=== PATIENT | female | born 1990 | race Caucasian/White ===

== ENCOUNTER 2020-01-29 10:31 | Outpatient (REF) | payer MEDICAID, SELFPAY ==
--- NOTE | 2020-01-29 | US_ITS ---
EXAMINATION: ULTRASOUND PELVIS COMPLETE. CLINICAL INFORMATION: Heavy and irregular periods. COMPARISON: None TECHNIQUE: Transabdominal and transvaginal imaging of pelvis is performed. FINDINGS: The uterus is anteverted, retroflexed measuring 8.5 cm in length, 3.5 cm in AP and 5.3 cm in transverse dimension. Endometrial thickness is 0.6 cm. No focal uterine lesions seen. There are small nabothian cysts seen in the cervix. Right ovary measures 3.4 x 1.9 x 2.0 cm and volume 6.6 mL and appears unremarkable. The left ovary measures 2.7 x 1.5 x 1.6 cm and volume 3.3 mL and appears unremarkable. There is no free fluid in cul-de-sac. IMPRESSION: Unremarkable the uterus and ovaries. Small nabothian cysts in the cervix.
== END 2020-01-29 10:32 | disposition home or self-care (01) ==
LOC: HO.HMGCX 10:31
PROVIDERS: PCP Internal Medicine; Visit Provider Internal Medicine
DX: N92.1 Excessive and frequent menstruation with irregular cycle (principal)
CPT/HCPCS: 76830; 76856

== ENCOUNTER 2020-04-09 19:36 | Emergency (ER) | payer MEDICAID, SELFPAY ==
[2020-04-09 19:44] VITALS: BP 112/90; BP 97/64; PULSE 80; PULSE 81; RESP 20; TEMP 36.8; O2SAT 100; O2SAT 98; BMI 25.0
[2020-04-09 19:50] VITALS: RESP 20
--- NOTE | 2020-04-09 21:04 | XR_ITS ---
EXAMINATION: XR CHEST CLINICAL INFORMATION: Cough. COMPARISON: None TECHNIQUE: Frontal portable view of the chest was obtained. 9:22 PM FINDINGS: No significant abnormality is noted involving the heart, lungs, mediastinum, bony thorax or soft tissues. XR/XR chest 1V IMPRESSION: Unremarkable examination.
--- NOTE | 2020-04-09 21:07 | ED.URI ---
HPI - URI/Sore Throat General Chief Complaint: Upper Respiratory Symptoms Stated Complaint: WEAKNESS,+COVID T-1 Time Seen by Provider: 04/09/20 21:04 Source: patient Mode of arrival: ambulatory History of Present Illness HPI Narrative: This is a 29-year-old female without significant past medical history who states that she was identified as being COVID positive yesterday and states that she has continued to have headache, body aches, nausea but no vomiting, 2 episodes of diarrhea, dry cough, and urinary burning. Related Data Allergies Allergy/AdvReac Type Severity Reaction Status Date / Time amoxicillin [Amoxicillin] Allergy Severe SOB, Verified 04/09/20 19:43 rash/shortness of breath Review of Systems Review of Systems: Pertinent positives and negatives as stated in HPI 10 point review systems is otherwise negative. [facility], [place] Past Medical History Source: nursing notes reviewed Medical History Asthma delivery delivered Surgical History S/P appendectomy Tubal ligation status Social History Social History Alcohol intake: never Smoking Status: Never smoker Use of substances other than those prescribed or required for medical reasons: No Advance Directives: No Advance Directives Information Provided: No Physical Exam Vital Signs: Vital Signs: Last Vital Signs Temp 98.3 F 04/09/20 19:44 Pulse 81 04/09/20 19:44 Resp 20 04/09/20 19:50 BP 97/64 04/09/20 19:44 Pulse Ox 98 04/09/20 19:44 Body Mass Index 25.0 VITAL SIGNS: Reviewed. GENERAL: Well developed, well nourished, in no acute distress. HEAD: Normocephalic/atraumatic, EYES: PERRLA, EOMI intact without pain EARS: Ext canals without abnormality, TMs non-bulging and non-erythematous NOSE: Nares patent bilateral OROPHARYNX: no oral lesions noted, posterior pharynx clear and non-erythematous without noted tonsillar enlargement/erythema/exudates NECK: Supple, no adenopathy LUNGS: Normal breath sounds. No adventitious sounds or accessory muscle use. SpO2<98> CARDIOVASCULAR: Regular rate and rhythm without noted murmurs, no JVD or lower extremity edema. ABDOMEN: Soft, non-tender, non-distended with bowel sounds. No rigidity. No guarding. No palpable masses or hernias noted MUSCULOSKELETAL: No tenderness, deformities, or effusions noted on gross inspection. EXTREMITIES: No cyanosis, clubbing or edema. SKIN: Inspection of the skin reveals no rashes NEUROLOGIC: Alert and oriented x 4. Course Course Course Narrative: This is a 29-year-old female with history and clinical presentation consistent with viral syndrome secondary to COVID-19. Suspect patient is mildly dehydrated and will be given IV fluids, combination analgesics, and obtain an x-ray as well as UA. Otherwise, patient is not noted to be tachypneic, hypoxic. On re-evaluation patient states that she is feeling much better after having received the combination analgesics and IV fluids. She states that she is ready to go home. MDM - URI/Sore Throat Lab Data Labs: Lab Results 04/09/20 Range/Units 21:24 Urine Color YELLOW Urine Appearance CLEAR Urine pH 6.5 (5.0-8.0) Ur Specific [place] 1.020 (1.005-1.025) Urine Protein NEG (NEG-TRACE) MG/DL Urine Glucose (UA) NEG (NEG) MG/DL Urine Ketones NEG (NEG) MG/DL Urine Blood NEG (NEG) Urine Nitrite NEG (NEG) Ur Leukocyte Esterase NEG (NEG) Urine Test NEGATIVE (NEGATIVE) Discharge Plan Discharge Clinical Impression: Viral syndrome, Dehydration Patient Disposition: Home, Self-Care Instructions: Viral Syndrome (ED) Additional Instructions: 1. Tylenol 1000 mg, por v?a oral, cada 6 horas seg?n sea necesario para el dolor de marilu, val corporales, temperaturas superiores a 100,4?C. No exceda los 4000 mg en 24 horas. 2. Ibuprofeno 400 mg, por v?a oral con leche o alimentos, cada 6 horas seg?n sea necesario para dolor de marilu, val corporales, temperaturas superiores a 100,4?C. Graciela medicamento se puede marcos con Tylenol. 3. Aumente la hidrataci?n de los l?quidos, especialmente con agua, y permita que cooper apetito regrese normalmente. 4. Contin?e con la auto cuarentena seg?n las pautas del [place]. Referrals: Physician,Unknown [Primary Care Provider] - 2 days (Re-evaluation after dehydration) Print Language: Belarusian
[2020-04-09] MEDS: ondansetron HCL 4 MG/2 ML VIAL IVPUSH (21:22)
[2020-04-09] MEDS: Ketorolac Tromethamine 15 MG/ML VIAL IVPUSH (21:22)
[2020-04-09] MEDS: 0.9 % Sodium Chloride 1,000 ML 999 ML IV (21:23)
--- NOTE | 2020-04-09 21:29 | PC.NURSE ---
iv inserted, pt medicated per order, pt ambulated to bathroom-steady gait-urine obtained, cxr currently being obtained, will continue to monitor.
[2020-04-09 21:32] LABS: Glucose Urine UA NEG (NEG); Leukocyte Esterase Urine NEG (NEG); Nitrite Urine NEG (NEG); PH 6.5 (5.0-8.0); Urine Blood NEG (NEG); Urine Ketones NEG (NEG); Urine Protein NEG (NEG-TRACE)
[2020-04-09 21:33] LABS: Appearance Urine CLEAR; Color Urine YELLOW
[2020-04-09 21:35] LABS: UPreg QC Valid YES; Urine Pregnancy NEGATIVE (NEGATIVE)
[2020-04-09 22:34] VITALS: BP 99/59; PULSE 78; RESP 17; TEMP 37.1; O2SAT 100
== END 2020-04-09 23:08 | disposition home or self-care (01) ==
PROVIDERS: Emergency Provider Student in an Organized Health Care Education/Training Program
DX: U07.1 COVID-19 (principal); E86.0 Dehydration
CPT/HCPCS: 71045; 81003; 81025; 96361; 96374; 96375; 99284; J1885; J2405

== ENCOUNTER 2020-05-20 11:06 | Outpatient (REF) | payer MEDICAID, SELFPAY ==
[2020-05-21 08:45] LABS: BV Int Neg Control Negative (Negative); BV Int Pos Control Positive (Positive)
[2020-05-22 06:47] LABS: C. trachomatis RNA TMA NOT DETECTED (NOT DETECTED); N. gonorrhoeae RNA TMA NOT DETECTED (NOT DETECTED)
== END 2020-05-20 11:07 | disposition home or self-care (01) ==
LOC: HO.LAB 11:06
PROVIDERS: Advanced Practice Midwife; Visit Provider Obstetrics & Gynecology
DX: N92.3 Ovulation bleeding (principal)
CPT/HCPCS: 36415; 81025; 87480; 87491; 87510; 87591; 87660; 99212

== ENCOUNTER 2020-10-02 18:04 | Emergency (ER) | payer MEDICAID, SELFPAY ==
[2020-10-02 18:40] VITALS: BP 116/78; PULSE 68; RESP 18; TEMP 36.8; O2SAT 100; BMI 23.4
--- NOTE | 2020-10-02 19:57 | ED_ITS ---
HPI - General Adult General Chief complaint: General Medical Stated complaint: 2 days itchy Time Seen by Provider: 10/02/20 19:50 Source: patient Mode of arrival: ambulatory Limitations: no limitations History of Present Illness HPI narrative: 30-year-old female here with complaints of generalized body itching with no rash for the last 3-4 days. Worsened at night time. No new medications, products, foods. No fevers or chills or vomiting or diarrhea or abdominal cramping or difficulty breathing or cough. Related Data Previous Rx's Medication Instructions Recorded levonorgestrel-ethinyl estradiol 1 tab PO DAILY #28 tab 05/20/20 0.1 mg-20 mcg tablet metronidazole 0.75 % vaginal gel 1 appful VAGINAL BEDTIME 5 Days 05/22/20 #70 g hydroxyzine HCl 25 mg PO QID PRN #20 tab 10/02/20 permethrin 1 appl TOPICAL Q14D #60 g 10/02/20 prednisone 40 mg PO DAILY #10 tab 10/02/20 Allergies Allergy/AdvReac Type Severity Reaction Status Date / Time amoxicillin [Amoxicillin] Allergy Severe SOB, Verified 10/02/20 18:40 rash/shortness of breath Review of Systems Review of Systems: Yes all other systems are reviewed and are negative Constitutional: Constitutional: Reports no additional constitutional complaints, Denies body ache(s), Denies chills, Denies fever(s), Denies headache(s) and Denies weakness Eyes: Eyes: Reports no additional eye complaints and Denies change in vision ENT: Reports system reviewed and no additional complaints, except as documented, Denies dizziness, Denies headache(s), Denies nasal congestion, Denies nasal discharge and Denies neck pain Cardiovascular: Cardiovascular: Reports no additional cardiovascular com plaints, Denies chest pain, Denies leg edema and Denies dyspnea Respiratory: Respiratory: Reports no additional respiratory complaints, Denies cough and Denies dyspnea Gastrointestinal: Gastrointestinal: Reports no additional gastrointestinal complaints, Denies abdominal pain, Denies diarrhea, Denies nausea and Denies vomiting Genitourinary: Genitourinary: Reports no additional female genitourinary complaints and Denies urinary incontinence Musculoskeletal: Musculoskeletal: Reports no additional musculoskeletal complaints, Denies back pain, Denies arthralgias, Denies joint swelling, Denies neck pain, Denies numbness and Denies tingling Integumentary/Breasts: Skin/Breast: Reports system reviewed and no additional complaints, except as docu, Reports pruritus and Denies rash Neurologic: Reports system reviewed and no additional complaints, except as documented, Denies Abnormal speech present, Denies dizziness, Denies headache(s), Denies numbness, Denies tingling and Denies weakness PMFSH Past Medical History Attestation statement: The following information was validated with the patient. Source: old records reviewed and nursing notes reviewed Medical History Asthma delivery delivered Surgical History History of bilateral tubal ligation S/P appendectomy Social History Social History Alcohol intake: never Advance Directives: No Advance Directives Information Provided: Yes Patient : No Physical Exam Vital Signs: Vital Signs: Last Vital Signs Temp 98.3 F 10/02/20 18:40 Pulse 68 10/02/20 18:40 Resp 18 10/02/20 18:40 BP 116/78 10/02/20 18:40 Pulse Ox 100 10/02/20 18:40 Body Mass Index 23.4 Const: General: cooperative, healthy appearing, comfortable and no acute distress Orientation/consciousness: patient oriented x3 Limitations: no limitations HENMT: Head: Yes normal to inspection Ears: hearing grossly normal bilaterally General nose exam: Normal external nose present Face and sinus: Yes normal facial exam Mouth: Normal oral and palatal mucosa present Throat: Yes posterior oropharynx normal Eyes: General: appearance normal, both eyes and all related structures Pupils: Equal, round and reactive pupils present Neck: Neck: Yes normal visual inspection Chest: Chest palpation & inspection: normal inspection of the chest Resp: Effort & Inspection: normal respiratory effort Auscultation: clear to auscultation bilaterally Cardio: Rate: regular rate Rhythm: regular rhythm Peripheral pulses: Peripheral pulses 2+ throughout GI: Inspection: Yes normal to inspection Palpation (GI): Soft to palpation and nontender Auscultation: normal bowel sounds Back/Spine/Pelvis: Thoracic/Lumbar Spine: thoracic and lumbar spine normal to inspection Skin: Other: No appreciable rash. Patient does appear to be itching generally General skin exam: no rashes or lesions noted Neuro: General: patient oriented x3, no focal motor deficits and normal sensation to monofilament Cranial nerves: Yes Equal, round and reactive pupils present Cognition (Neuro): normal cognition Speech: No Abnormal speech present Gait exam (Neuro): Normal gait present Motor exam (neuro): 5/5 motor strength present throughout Extrem: General: Yes normal to inspection, Yes no pedal edema and Yes no calf tenderness Course Course Course Narrative: 30-year-old female here with generalized itching for the last few days worsened at night time. No appreciable rash. No known contact the patient is able to state. Will treat as scabies, supportive care with benadryl, pred. If no improvement follow-up with primary care doctor. Reviewed worrisome signs and symptoms when to return to the emergency department. Comfortable discharge home. Discharge Plan Discharge Clinical Impression: Scabies Patient Disposition: Home, Self-Care Instructions: Scabies (ED) Prescriptions: New permethrin 5 % cream 1 appl topical Q14D Qty: 60 RF: 0 hydroxyzine HCl 25 mg tablet 25 mg PO QID PRN (Reason: itching) Qty: 20 RF: 0 prednisone 20 mg tablet 40 mg PO DAILY Qty: 10 RF: 0 No Action metronidazole [Metrogel Vaginal] 0.75 % gel 1 appful vaginal BEDTIME 5 Days Qty: 70 RF: 0 levonorgestrel-ethinyl estrad 0.1-20 mg-mcg tablet 1 tab PO DAILY Qty: 28 RF: 3 Referrals: [facility] [Primary Care Provider] - 2 days Interventions: ED Discharge Assessment Last Done: 10/02/20 20:11 Discharge Date/Time: 10/02/20 20:18
== END 2020-10-02 20:18 | disposition home or self-care (01) ==
PROVIDERS: Emergency Provider Emergency Medicine
DX: B86 Scabies (principal)
CPT/HCPCS: 99283; 99284

== ENCOUNTER 2020-11-13 14:54 | Outpatient (REF) | payer MEDICAID, SELFPAY ==
[2020-11-13 18:00] LABS: HCG Quantitative < 2 mIU/mL; Thyroid Stimulating Hormone 1.19 uIU/mL (0.32-4.0)
[2020-11-15 07:52] LABS: Prolactin 4.5 ng/mL
[2020-11-15 10:07] LABS: DHEA Sulfate 121 mcg/dL (18-391)
[2020-11-18 16:17] LABS: Testosterone, Free 2.3 pg/mL (0.1-6.4); Testosterone, Total 29 ng/dL (2-45)
== END 2020-11-13 14:55 | disposition home or self-care (01) ==
LOC: HO.LAB 14:54
PROVIDERS: Visit Provider Advanced Practice Midwife
DX: N91.5 Oligomenorrhea, unspecified (principal); R63.0 Anorexia; R23.4 Changes in skin texture; R23.2 Flushing; L70.9 Acne, unspecified
CPT/HCPCS: 36415; 82627; 83498; 84146; 84402; 84403; 84443; 84702; 99212

== ENCOUNTER → 2020-11-20 12:12 | Outpatient (BNVA) | payer MEDICAID, SELFPAY | PROVIDERS: Visit Provider Advanced Practice Midwife ==

== ENCOUNTER 2021-10-14 00:27 | Emergency (ER) | payer MEDICAID, SELFPAY ==
[2021-10-14 00:33] VITALS: BP 126/87; PULSE 77; RESP 16; TEMP 36.7; O2SAT 99; BMI 35.5
[2021-10-14 01:56] LABS: Appearance Urine HAZY; Color Urine YELLOW; Glucose Urine UA NEG (NEG); Leukocyte Esterase Urine NEG (NEG); Nitrite Urine NEG (NEG); Urine Blood NEG (NEG); Urine Ketones NEG (NEG); Urine Protein NEG (NEG-TRACE)
[2021-10-14 02:03] LABS: UPreg QC Valid YES; Urine Pregnancy NEGATIVE (NEGATIVE)
--- NOTE | 2021-10-14 02:06 | ED_ITS ---
HPI - Abdominal Pain General Chief Complaint: Abdominal Pain Stated Complaint: Vomiting/Abd pain Time Seen by Provider: 10/14/21 01:23 Source: patient Limitations: no limitations History of Present Illness HPI narrative: this is a 31-year-old female who is 4 para 4, had a menstrual period around September 13, yesterday had a little spotting but did not continue to have bleeding. The patient has had some lower abdominal discomfort and pressure. She has had some nausea but denies any vomiting. She denies any fever. She denies any UTI symptoms. She denies any low back pain pain. Related Data Previous Rx's Medication Instructions Recorded metronidazole 0.75 % vaginal gel 1 appful vaginal BEDTIME 5 days 05/22/20 (Metrogel Vaginal) #70 grams hydroxyzine HCl 25 mg tablet 25 mg PO QID PRN itching #20 tabs 10/02/20 permethrin 5 % topical cream 1 appl topical Q14D 2 doses #60 10/02/20 grams Allergies Allergy/AdvReac Type Severity Reaction Status Date / Time amoxicillin [Amoxicillin] Allergy Severe SOB, Verified 11/20/20 12:12 rash/shortness of breath Review of Systems Review of Systems Yes all other systems are reviewed and are negative Constitutional: Reports as per HPI and Denies fever(s) Eyes: Reports as per HPI and Reports no additional eye complaints Reports system reviewed and no additional complaints, except as documented, Reports as per HPI, Denies nasal congestion, Denies nasal discharge and Denies sore throat Cardiovascular: Reports as per HPI, Denies chest pain and Denies dyspnea Respiratory: Reports as per HPI, Denies cough and Denies dyspnea Gastrointestinal: Reports as per HPI, Reports abdominal pain, Denies constipation, Denies diarrhea, Reports nausea and Denies vomiting Genitourinary: Reports as per HPI, Denies hematuria, Denies urinary frequency and Denies dysuria Musculoskeletal: Reports no additional musculoskeletal complaints and Denies nu mbness Skin/Breast: Reports as per HPI and Denies rash Reports as per HPI, Denies focal weakness and Denies numbness Psychiatric: Reports no additional psychiatric complaints and Reports as per HPI Endocrine: Reports no additional endocrine complaints and Reports as per HPI Hematologic/Lymphatic: Reports no additional hematologic/lymphatic complaints, Reports as per HPI and Reports other (No peripheral edema) [facility] Past Medical History Medical History Asthma delivery delivered Surgical History History of bilateral tubal ligation S/P appendectomy Social History Social History Alcohol intake: never Advance Directives: No Physical Exam ED Vital Signs: Vital Signs - 24 hr 10/14/21 00:33 10/14/21 02:37 Temperature 98.1 F Pulse Rate 77 66 Respiratory Rate 16 16 Blood Pressure 126/87 116/79 Pulse Oximetry 99 100 Oxygen Delivery Method Room Air Room Air BMI result Body Mass Index 35.5 Const General: no acute distress Orientation/consciousness: patient oriented x3 HENMT Head: Yes normal to inspection General nose exam: Normal external nose present Mouth: moist mucous membranes Throat: Yes posterior oropharynx normal, Yes tonsils normal and Yes uvula midline Eyes Eyelids: Yes eyelids normal Conjunctivae: conjunctivae normal Pupils: Equal, round and reactive pupils present Neck Neck: Yes supple Resp Effort & Inspection: normal respiratory effort Auscultation: clear to auscultation bilaterally Cardio Rate: regular rate Rhythm: regular rhythm Heart sounds: S1 normal heart sound present, S2 normal heart sound present, no gallops, no murmurs and no rubs GI Inspection: No distended Palpation (GI): Soft to palpation and Tenderness to palpation present (GI) ( Tender bilateral pelvis, no guarding) Auscultation: normal bowel sounds Skin General skin exam: other (Warm and dry) Neuro General: patient oriented x3 and CN's II-XI intact bilaterally Cranial nerves: Yes Equal, round and reactive pupils present Extrem General: Yes no pedal edema Psych Affect: normal affect Attitude: cooperative MDM - Abdominal Pain MDM Narrative Medical decision making narrative: patient with what she thought might be a missed menstrual period, with Resultant concern about being . Patient had felt bloated as well as intermittent lower abdominal pain. Patient has no constant pain and had a benign abdominal exam. HCG both urine and blood were negative. CBC and chemistry urinalysis showed no concerning findings. I do not believe imaging is warranted at this time. Patient can follow-up with her primary care physician. Patient also complained of eating more, some trouble sleeping. She denied depression per se but does not stress related to having 4 children Lab Data Attestation: I reviewed the patient's lab results. Result diagrams: 10/14/21 02:17 10/14/21 02:17 Labs: Lab Results 10/14/21 10/14/21 10/14/21 Range/Units 01:48 01:49 02:17 WBC 5.5 (4.8-10.8) X10*3/uL RBC 4.00 L (4.20-5.50) X10*6/uL Hgb 11.8 L (12.0-16.0) g/dl Hct 34.1 L (37.0-47.0) % MCV 85.3 (80.0-98.0) fL MCH 29.5 (27.0-33.0) pg MCHC 34.6 (31.0-35.0) g/dl RDW 12.1 (11.0-16.0) % Plt Count 186 (160-400) X10*3/uL MPV 9.8 (9.4-12.3) fL Immature Gran % (Auto) 0.2 (0.0-0.4) % Neut % (Auto) 56.1 (45-73) % Lymph % (Auto) 34.5 (20-40) % [place] % (Auto) 6.5 (2-11) % Eos % (Auto) 2.2 (0-4) % Baso % (Auto) 0.5 (0-2) % Lymph # (Auto) 1.9 (1.2-4.9) X10*3/uL [place] # (Auto) 0.4 (0.1-1.2) X10*3/uL Eos # (Auto) 0.1 (0.0-0.4) X10*3/uL Baso # (Auto) 0.0 (0.0-0.2) X10*3/uL Abs Immat Gran (auto) 0.01 (0.00-0.03) X10*3/uL Absolute Neuts (auto) 3.1 (2.0-8.3) x10*3/uL Absolute Nucleated RBC 0.000 (0.0-0.012) X10*3/uL Nucleated RBC % (auto) 0.0 (0.0-0.2) /100WBC Sodium (135-145) mmol/L Potassium (3.3-5.1) mmol/L Chloride (96-108) mmol/L Carbon Dioxide (22-29) mmol/L Anion Gap (12-20) BUN (9-16) mg/dL Creatinine (0.5-1.4) mg/dL Estim Creat Clear Calc Estimated GFR Random Glucose (60-115) mg/dL Calcium (8.4-10.2) mg/dL Total Bilirubin (0.0-1.0) mg/dL Direct Bilirubin (0.0-0.5) mg/dL AST (5-31) U/L ALT (0-31) U/L Alkaline Phosphatase (39-117) U/L Total Protein (6.5-8.0) g/dL Albumin (3.5-5.0) g/dL Lipase (8-78) U/L Beta HCG, Quant mIU/mL Urine Color YELLOW Urine Appearance HAZY Urine pH 7.0 (5.0-8.0) Ur Specific [place] 1.020 (1.005-1.025) Urine Protein NEG (NEG-TRACE) MG/DL Urine Glucose (UA) NEG (NEG) MG/DL Urine Ketones NEG (NEG) MG/DL Urine Blood NEG (NEG) Urine Nitrite NEG (NEG) Ur Leukocyte Esterase NEG (NEG) Urine Test NEGATIVE (NEGATIVE) 10/14/21 10/14/21 Range/Units 02:17 02:17 WBC (4.8-10.8) X10*3/uL RBC (4.20-5.50) X10*6/uL Hgb (12.0-16.0) g/dl Hct (37.0-47.0) % MCV (80.0-98.0) fL MCH (27.0-33.0) pg MCHC (31.0-35.0) g/dl RDW (11.0-16.0) % Plt Count (160-400) X10*3/uL MPV (9.4-12.3) fL Immature Gran % (Auto) (0.0-0.4) % Neut % (Auto) (45-73) % Lymph % (Auto) (20-40) % [place] % (Auto) (2-11) % Eos % (Auto) (0-4) % Baso % (Auto) (0-2) % Lymph # (Auto) (1.2-4.9) X10*3/uL [place] # (Auto) (0.1-1.2) X10*3/uL Eos # (Auto) (0.0-0.4) X10*3/uL Baso # (Auto) (0.0-0.2) X10*3/uL Abs Immat Gran (auto) (0.00-0.03) X10*3/uL Absolute Neuts (auto) (2.0-8.3) x10*3/uL Absolute Nucleated RBC (0.0-0.012) X10*3/uL Nucleated RBC % (auto) (0.0-0.2) /100WBC Sodium 137 (135-145) mmol/L Potassium 4.2 (3.3-5.1) mmol/L Chloride 109 H (96-108) mmol/L Carbon Dioxide 23 (22-29) mmol/L Anion Gap 9 L (12-20) BUN 22 H (9-16) mg/dL Creatinine 0.66 (0.5-1.4) mg/dL Estim Creat Clear Calc 108.0 Estimated GFR > 60 Random Glucose 102 (60-115) mg/dL Calcium 8.4 (8.4-10.2) mg/dL Total Bilirubin 0.3 (0.0-1.0) mg/dL Direct Bilirubin 0.2 (0.0-0.5) mg/dL AST 14 (5-31) U/L ALT 8 (0-31) U/L Alkaline Phosphatase 77 (39-117) U/L Total Protein 6.3 L (6.5-8.0) g/dL Albumin 3.8 (3.5-5.0) g/dL Lipase 32 (8-78) U/L Beta HCG, Quant < 2 mIU/mL Urine Color Urine Appearance Urine pH (5.0-8.0) Ur Specific [place] (1.005-1.025) Urine Protein (NEG-TRACE) MG/DL Urine Glucose (UA) (NEG) MG/DL Urine Ketones (NEG) MG/DL Urine Blood (NEG) Urine Nitrite (NEG) Ur Leukocyte Esterase (NEG) Urine Test (NEGATIVE) Discharge Plan Discharge Clinical Impression: Abdominal pain Patient Disposition: Home, Self-Care Instructions: Abdominal Pain (ED) Additional Instructions: Follow-up with your primary care physician. Return for any new or worsened symptoms such as progressive over more constant abdominal pain, fever, pain that is worse with cough or movement. Prescriptions: No Action metronidazole [Metrogel Vaginal] 0.75 % gel 1 appful vaginal BEDTIME 5 Days Qty: 70 0RF Rx Instructions: avoid alcohol permethrin 5 % cream 1 appl topical Q14D Qty: 60 0RF Rx Instructions: apply second treatment 14 days after first treatment if live lice remain hydroxyzine HCl 25 mg tablet 25 mg PO QID PRN (Reason: itching) Qty: 20 0RF Interventions: ED Discharge Assessment Last Done: 10/14/21 03:24 Discharge Date/Time: 10/14/21 03:25
[2021-10-14 02:21] LABS: MANUAL DIFF FLAG NO
[2021-10-14 02:25] LABS: Basophils Percent Auto 0.5 % (0-2); Eosinophils Absolute Auto 0.1 X10*3/uL (0.0-0.4); Eosinophils Percent Auto 2.2 % (0-4); Hematocrit 34.1 % (37.0-47.0); Hemoglobin 11.8 g/dl (12.0-16.0); Imm Gran Abs Auto 0.01 X10*3/uL (0.00-0.03); Imm Gran Pct Auto 0.2 % (0.0-0.4); Lymphocytes Absolute Auto 1.9 X10*3/uL (1.2-4.9); Lymphocytes Percent Auto 34.5 % (20-40); Mean Corpuscular HGB Conc 34.6 g/dl (31.0-35.0); Mean Corpuscular Hemoglobin 29.5 pg (27.0-33.0); Mean Corpuscular Volume 85.3 fL (80.0-98.0); Mean Platelet Volume 9.8 fL (9.4-12.3); Monocytes Absolute Auto 0.4 X10*3/uL (0.1-1.2); Monocytes Percent Auto 6.5 % (2-11); Neutrophils Absolute Auto 3.1 x10*3/uL (2.0-8.3); Neutrophils Percent Auto 56.1 % (45-73); Platelet Count 186 X10*3/uL (160-400); Red Cell Distribution Width 12.1 % (11.0-16.0); White Blood Count 5.5 X10*3/uL (4.8-10.8)
[2021-10-14 02:37] VITALS: BP 116/79; PULSE 66; RESP 16; O2SAT 100
[2021-10-14 02:46] LABS: HCG Quantitative < 2 mIU/mL
[2021-10-14 02:47] LABS: Alanine Aminotransferase 8 U/L (0-31); Albumin Level 3.8 g/dL (3.5-5.0); Alkaline Phosphatase 77 U/L (39-117); Anion Gap 9 (12-20); Aspartate Amino Transferase 14 U/L (5-31); Bilirubin Direct 0.2 mg/dL (0.0-0.5); Bilirubin Total 0.3 mg/dL (0.0-1.0); Blood Urea Nitrogen 22 mg/dL (9-16); Calcium 8.4 mg/dL (8.4-10.2); Carbon Dioxide 23 mmol/L (22-29); Chloride 109 mmol/L (96-108); Estimated Glomerular Filt Rate > 60; Glucose Random 102 mg/dL (60-115); Lipase 32 U/L (8-78); Potassium 4.2 mmol/L (3.3-5.1); Sodium 137 mmol/L (135-145); Total Protein 6.3 g/dL (6.5-8.0)
== END 2021-10-14 03:25 | disposition home or self-care (01) ==
PROVIDERS: Emergency Provider Emergency Medicine
DX: R10.30 Lower abdominal pain, unspecified (principal); Z79.899 Other long term (current) drug therapy
CPT/HCPCS: 36415; 80048; 80076; 81003; 81025; 83690; 84702; 85025; 99283

== ENCOUNTER 2021-10-27 15:03 | Emergency (ER) | payer MEDICAID, SELFPAY ==
[2021-10-27 15:07] VITALS: BP 135/85; PULSE 78; RESP 18; TEMP 36.7; O2SAT 99; BMI 24.0
== END 2021-10-27 21:16 | disposition left against medical advice (07) ==
PROVIDERS: Emergency Provider Emergency Medicine
DX: R13.10 Dysphagia, unspecified (principal); H53.8 Other visual disturbances
CPT/HCPCS: 99281

== ENCOUNTER 2021-11-25 08:17 | Outpatient (REF) | payer MEDICAID, SELFPAY ==
--- NOTE | ~2021-11-25 | US_ITS ---
EXAMINATION: US ABDOMEN COMPLETE CLINICAL INFORMATION: Lower abdominal pain. COMPARISON: Limited abdominal ultrasound 03/09/2016. Ultrasound abdomen 02/14/2016. CT abdomen and pelvis 09/21/2009. TECHNIQUE: Real-time imaging of the abdominal viscera. FINDINGS: PANCREAS: Normal. ABDOMINAL AORTA: The proximal, mid, and distal segments are normal in caliber. INFERIOR VENA CAVA: Visualized portions are normal. LIVER: The liver is normal in size. The liver contour is normal. Liver echotexture is slightly increased. No focal hepatic lesion. There is no intrahepatic biliary duct dilatation seen. GALLBLADDER: Surgically absent. COMMON BILE DUCT: Normal in caliber measuring 0.3 cm in diameter. RIGHT KIDNEY: Normal. No hydronephrosis. No renal calculi or focal parenchymal lesions. The kidney measures 9.4 cm in maximum dimension. LEFT KIDNEY: Normal. No hydronephrosis. No renal calculi or focal parenchymal lesions. The kidney measures 9.3 cm in maximum dimension. SPLEEN: Normal. The spleen measures 12.6 cm in maximum dimension. FREE FLUID: None. US/US abdomen complete IMPRESSION: Slightly echogenic liver probably representing fatty infiltration..
--- NOTE | ~2021-11-25 | US_ITS ---
EXAMINATION: US PELVIS CLINICAL INFORMATION: Pain COMPARISON: Previous pelvic ultrasound most recent January 2020 TECHNIQUE: Ultrasound of the pelvis is performed using both transabdominal and transvaginal transducers along with Doppler. Transvaginal imaging is performed due to inadequate visualization transabdominally. FINDINGS: The uterus is anteverted and retroflexed and measures 9.8 x 4.2 x 6 cm in dimension. No focal uterine lesion is seen. Endometrial thickness is normal measuring 0.6 cm. There are nabothian cysts in the cervix. The ovaries are normal-appearing. Right ovary measures 3 x 1.8 x 2.6 cm. Left ovary measures 3.4 x 2.2 x 2.9 cm. There is no fluid in the pelvis. US/US pelvic and transvaginal IMPRESSION: Unremarkable exam.
== END 2021-11-25 08:18 | disposition home or self-care (01) ==
LOC: HO.HMGCX 08:17
PROVIDERS: PCP Internal Medicine; Visit Provider Registered Nurse
DX: R10.2 Pelvic and perineal pain (principal); R10.30 Lower abdominal pain, unspecified
CPT/HCPCS: 76700; 76830; 76856

== ENCOUNTER 2022-04-28 10:58 | Emergency (ER) | payer MEDICAID, SELFPAY ==
[2022-04-28 11:21] VITALS: BP 149/90; PULSE 75; RESP 14; TEMP 36.6; O2SAT 99; BMI 22.9
[2022-04-28 11:47] LABS: MANUAL DIFF FLAG NO
[2022-04-28 11:48] LABS: Basophils Percent Auto 0.5 % (0-2); Eosinophils Absolute Auto 0.1 X10*3/uL (0.0-0.4); Eosinophils Percent Auto 1.6 % (0-4); Hemoglobin 13.9 g/dl (12.0-16.0); Imm Gran Abs Auto 0.01 X10*3/uL (0.00-0.03); Imm Gran Pct Auto 0.2 % (0.0-0.4); Lymphocytes Absolute Auto 1.5 X10*3/uL (1.2-4.9); Lymphocytes Percent Auto 36.1 % (20-40); Mean Corpuscular HGB Conc 34.8 g/dl (31.0-35.0); Mean Corpuscular Hemoglobin 29.6 pg (27.0-33.0); Mean Corpuscular Volume 85.3 fL (80.0-98.0); Mean Platelet Volume 9.9 fL (9.4-12.3); Monocytes Absolute Auto 0.3 X10*3/uL (0.1-1.2); Monocytes Percent Auto 6.3 % (2-11); Neutrophils Absolute Auto 2.4 x10*3/uL (2.0-8.3); Neutrophils Percent Auto 55.3 % (45-73); Platelet Count 197 X10*3/uL (160-400); Red Blood Count 4.69 X10*6/uL (4.20-5.50); White Blood Count 4.3 X10*3/uL (4.8-10.8)
[2022-04-28 11:58] LABS: UPreg QC Valid YES; Urine Pregnancy NEGATIVE (NEGATIVE)
[2022-04-28 11:59] LABS: Appearance Urine Clear; Color Urine Yellow; Glucose Urine UA Negative (Negative); Leukocyte Esterase Urine Negative (Negative); Nitrite Urine Negative (Negative); PH 5.5 (5.0-9.0); Specific Gravity - Urine >= 1.030 (1.005-1.025); Urine Blood Negative (Negative); Urine Ketones Trace mg/dL (Negative); Urine Protein Negative (Neg-Trace)
[2022-04-28 12:08] LABS: Anion Gap 11 (12-20); Blood Urea Nitrogen 23 mg/dL (9-16); Calcium 9.1 mg/dL (8.4-10.2); Carbon Dioxide 26 mmol/L (22-29); Chloride 106 mmol/L (96-108); Creatinine Clr Calc Pharmacy 78.4; Estimated Glomerular Filt Rate > 60; Glucose Random 97 mg/dL (60-115); Potassium 4.1 mmol/L (3.3-5.1); Sodium 139 mmol/L (135-145)
[2022-04-28 12:15] LABS: IDNOW Serial# 9DB6401D; Influenza A Negative (Negative); Influenza B2 Negative (Negative)
[2022-04-28 17:45] VITALS: BP 117/79; PULSE 65; RESP 16; TEMP 36.5; O2SAT 100
--- NOTE | 2022-04-28 17:48 | ED.ABDPAIN ---
HPI - Abdominal Pain General Chief Complaint: Abdominal Pain Stated Complaint: Abd pain/vomiting Time Seen by Provider: 04/28/22 17:10 Source: patient Mode of arrival: ambulatory Limitations: no limitations History of Present Illness HPI narrative: Patient with frequent lower abdominal pain status post cholecystectomy and appendectomy had ultrasound of the abdomen and last year was negative comes here for 1-1/2 week of lower abdominal cramping with nausea and vomiting Related Data Previous Rx's Medication Instructions Recorded metronidazole 0.75 % (37.5 mg/5 1 appful vaginal BEDTIME 5 days 05/22/20 gram) vaginal gel (Metrogel #70 grams Vaginal) hydroxyzine HCl 25 mg tablet 25 mg PO QID PRN itching #20 tabs 10/02/20 permethrin 5 % topical cream 1 appl topical Q14D 2 doses #60 10/02/20 grams dicyclomine 20 mg tablet 20 mg PO QID PRN abdominal pain 04/28/22 #20 tabs Allergies Allergy/AdvReac Type Severity Reaction Status Date / Time amoxicillin [Amoxicillin] Allergy Severe SOB, Verified 11/20/20 12:12 rash/shortness of breath Review of Systems Review of Systems Yes all other systems are reviewed and are negative PMF Past Medical History Medical History Asthma delivery delivered Surgical History History of bilateral tubal ligation S/P appendectomy Social History Social History Alcohol intake: never Smoked in Last 30 Days: No Advance Directives: No Advance Directives Information Provided: Yes Patient : No Physical Exam ED Vital Signs: Vital Signs - 24 hr 04/28/22 11:21 04/28/22 17:45 04/28/22 18:36 Temperature 97.9 F 97.7 F 97.0 F Pulse Rate 75 65 82 Respiratory Rate 14 16 18 Blood Pressure 149/90 H 117/79 118/87 Pulse Oximetry 99 100 98 Oxygen Delivery Method Room Air Room Air Room Air BMI result Body Mass Index 22.9 Appearance: Alert. Oriented X3. No acute distress. Eyes: PERRLA, No Nystagmus ENT: Pharynx normal. Oral Mucosa moist Neck: Normal inspection. Neck supple. CVS: Normal heart rate and rhythm. Pulses normal. Respiratory: No respiratory distress. Equal air entry bilateral, no wheezing/rales/rhonchi Abdomen: Soft mild suprapubic tenderness no rebound tenderness or guarding Bowel sounds are present, no mass palpable, no CVA tenderness Skin: Skin warm and dry. Normal skin color. Normal skin turgor. Extremities: No lower extremity edema. No calf tenderness Neuro: Oriented X 3. Medical Decision Making Medical Decision Making [facility] Narrative: Patient nonspecific lower abdominal pain status post appendectomy and cholecystectomy had multiple ultrasounds in the past denies any stress denies any constipation patient labs are stable looks comfortable will discharge patient home on Bentyl patient does have Zofran at home no active vomiting in the ER Lab Data [facility] Lab Attestation statement: I reviewed the patient's lab results. 04/28/22 11:40 04/28/22 11:40 Labs: Lab Results 04/28/22 04/28/22 04/28/22 Range/Units 11:40 11:40 11:40 WBC 4.3 L (4.8-10.8) X10*3/uL RBC 4.69 (4.20-5.50) X10*6/uL Hgb 13.9 (12.0-16.0) g/dl Hct 40.0 (37.0-47.0) % MCV 85.3 (80.0-98.0) fL MCH 29.6 (27.0-33.0) pg MCHC 34.8 (31.0-35.0) g/dl RDW 12.0 (11.0-16.0) % Plt Count 197 (160-400) X10*3/uL MPV 9.9 (9.4-12.3) fL Immature Gran % (Auto) 0.2 (0.0-0.4) % Neut % (Auto) 55.3 (45-73) % Lymph % (Auto) 36.1 (20-40) % [place] % (Auto) 6.3 (2-11) % Eos % (Auto) 1.6 (0-4) % Baso % (Auto) 0.5 (0-2) % Lymph # (Auto) 1.5 (1.2-4.9) X10*3/uL [place] # (Auto) 0.3 (0.1-1.2) X10*3/uL Eos # (Auto) 0.1 (0.0-0.4) X10*3/uL Baso # (Auto) 0.0 (0.0-0.2) X10*3/uL Abs Immat Gran (auto) 0.01 (0.00-0.03) X10*3/uL Absolute Neuts (auto) 2.4 (2.0-8.3) x10*3/uL Absolute Nucleated RBC 0.000 (0.0-0.012) X10*3/uL Nucleated RBC % (auto) 0.0 (0.0-0.2) /100WBC Sodium 139 (135-145) mmol/L Potassium 4.1 (3.3-5.1) mmol/L Chloride 106 (96-108) mmol/L Carbon Dioxide 26 (22-29) mmol/L Anion Gap 11 L (12-20) BUN 23 H (9-16) mg/dL Creatinine 0.73 (0.5-1.4) mg/dL Estim Creat Clear Calc 78.4 Estimated GFR > 60 Random Glucose 97 (60-115) mg/dL Calcium 9.1 D (8.4-10.2) mg/dL Urine Color Urine Appearance Urine pH (5.0-9.0) Ur Specific [place] (1.005-1.025) Urine Protein (Neg-Trace) mg/dL Urine Glucose (UA) (Negative) mg/dL Urine Ketones (Negative) mg/dL Urine Blood (Negative) Urine Nitrite (Negative) Ur Leukocyte Esterase (Negative) Urine Test (NEGATIVE) Influenza Type A (BEN) Negative (Negative) Influenza Type B (BEN) Negative (Negative) Influenza A & B Note See Note 04/28/22 04/28/22 Range/Units 11:40 11:40 WBC (4.8-10.8) X10*3/uL RBC (4.20-5.50) X10*6/uL Hgb (12.0-16.0) g/dl Hct (37.0-47.0) % MCV (80.0-98.0) fL MCH (27.0-33.0) pg MCHC (31.0-35.0) g/dl RDW (11.0-16.0) % Plt Count (160-400) X10*3/uL MPV (9.4-12.3) fL Immature Gran % (Auto) (0.0-0.4) % Neut % (Auto) (45-73) % Lymph % (Auto) (20-40) % [place] % (Auto) (2-11) % Eos % (Auto) (0-4) % Baso % (Auto) (0-2) % Lymph # (Auto) (1.2-4.9) X10*3/uL [place] # (Auto) (0.1-1.2) X10*3/uL Eos # (Auto) (0.0-0.4) X10*3/uL Baso # (Auto) (0.0-0.2) X10*3/uL Abs Immat Gran (auto) (0.00-0.03) X10*3/uL Absolute Neuts (auto) (2.0-8.3) x10*3/uL Absolute Nucleated RBC (0.0-0.012) X10*3/uL Nucleated RBC % (auto) (0.0-0.2) /100WBC Sodium (135-145) mmol/L Potassium (3.3-5.1) mmol/L Chloride (96-108) mmol/L Carbon Dioxide (22-29) mmol/L Anion Gap (12-20) BUN (9-16) mg/dL Creatinine (0.5-1.4) mg/dL Estim Creat Clear Calc Estimated GFR Random Glucose (60-115) mg/dL Calcium (8.4-10.2) mg/dL Urine Color Yellow Urine Appearance Clear Urine pH 5.5 (5.0-9.0) Ur Specific [place] >= 1.030 H (1.005-1.025) Urine Protein Negative (Neg-Trace) mg/dL Urine Glucose (UA) Negative (Negative) mg/dL Urine Ketones Trace (Negative) mg/dL Urine Blood Negative (Negative) Urine Nitrite Negative (Negative) Ur Leukocyte Esterase Negative (Negative) Urine Test NEGATIVE (NEGATIVE) Influenza Type A (BEN) (Negative) Influenza Type B (BEN) (Negative) Influenza A & B Note Medications Administered Discontinued Medications Generic Name Dose Route Start Last Admin Trade Name Freq PRN Reason Stop Dose Admin Dicyclomine HCl 20 mg 04/28/22 17:49 04/28/22 18:13 Dicyclomine Hcl 10 Mg Capsule PO 04/28/22 17:50 20 mg ONCE ONE Administration Discharge Plan Discharge Clinical Impression: Acute nausea with nonbilious vomiting Patient Disposition: Home, Self-Care Instructions: Acute Nausea and Vomiting (ED) Additional Instructions: Continue to take your Zofran as needed for nausea and vomiting Dicyclomine for abdominal discomfort Follow with PCP Prescriptions: New dicyclomine 20 mg tablet 20 mg PO QID PRN (Reason: abdominal pain) Qty: 20 0RF No Action metronidazole [Metrogel Vaginal] 0.75 % gel 1 appful vaginal BEDTIME 5 Days Qty: 70 0RF Rx Instructions: avoid alcohol permethrin 5 % cream 1 appl topical Q14D Qty: 60 0RF Rx Instructions: apply second treatment 14 days after first treatment if live lice remain hydroxyzine HCl 25 mg tablet 25 mg PO QID PRN (Reason: itching) Qty: 20 0RF Interventions: ED Discharge Assessment Last Done: 04/28/22 18:37 Discharge Date/Time: 04/28/22 18:37
--- NOTE | 2022-04-28 17:50 | PC.NURSE ---
patient a/ox4 . cruzito . heart rate regular at 68 beats per [place] . breathing even and unlabored . lungs clear throughout . skin pink warm and dry . abdomen soft , rebound tenderness noted in lower abdomen . hypoactive bowel sounds noted in lower quadrants . patient reports normal bowel patterns for herself . episodes of vomiting and nausea since Wednesday . patient aware of plan of care .
[2022-04-28] MEDS: Dicyclomine HCl 10 MG CAPSULE 20 MG PO (18:13)
[2022-04-28 18:36] VITALS: BP 118/87; PULSE 82; RESP 18; TEMP 36.1; O2SAT 98
--- NOTE | 2022-04-28 18:36 | PC.NURSE ---
patient a/ox4 . VSS . went over discharge instructions as ordered . patient to follow up with primary care . patient to return to ED if symptoms worsen . no questions at this time .
== END 2022-04-28 18:37 | disposition home or self-care (01) ==
PROVIDERS: Emergency Provider Internal Medicine; PCP Internal Medicine
DX: R10.9 Unspecified abdominal pain (principal); R11.2 Nausea with vomiting, unspecified; Z79.899 Other long term (current) drug therapy; Z20.828 Contact with and (suspected) exposure to other viral communicable diseases
CPT/HCPCS: 80048; 81003; 81025; 85025; 87502; 99283; 99284

== ENCOUNTER 2023-06-24 10:23 | Emergency (ER) | payer MEDICAID, SELFPAY ==
[2023-06-24 10:37] VITALS: BP 118/72; PULSE 79; RESP 17; TEMP 36.6; O2SAT 97; BMI 22.3
--- NOTE | 2023-06-24 10:44 | ED.GENADULT ---
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 States that she took a loratadine at 2:00 a.m. which did not really change symptoms. She denies any swelling to lips or tongue, denies any shortness of breath or difficulty breathing. Denies any difficulty swallowing or sore throat. Denies any new medication or recent changes to skin care. States that she developed similar symptoms last August after having a facial but that the symptoms had essentially resolved. States symptoms began acutely last night. She denies arthralgias, fatigue, chest pain, joint pain, edema. complaint: facial rash Onset (ago): hour(s) Location: face Radiation: non-radiation Severity: moderate Quality: burning Relieving factors: none Exacerbating factors: none Associated symptoms: denies other symptoms Treatments prior to arrival: other Related Data Previous Rx's Medication Instructions Recorded metronidazole 0.75 % (37.5 mg/5 1 appful vaginal BEDTIME 5 days 05/22/20 gram) vaginal gel (Metrogel #70 grams Vaginal) hydroxyzine HCl 25 mg tablet 25 mg PO QID PRN itching #20 tabs 10/02/20 permethrin 5 % topical cream 1 appl topical Q14D 2 doses #60 10/02/20 grams dicyclomine 20 mg tablet 20 mg PO QID PRN abdominal pain 04/28/22 #20 tabs betamethasone dipropionate 0.05 % 1 appl topical BID PRN rash #15 06/24/23 topical cream grams Allergies Allergy/AdvReac Type Severity Reaction Status Date / Time amoxicillin [Amoxicillin] Allergy Severe SOB, Verified 11/20/20 12:12 rash/shortness of breath Review of Systems Review of Systems: As per HPI Yes all other systems are reviewed and are negative Constitutional: Constitutional: Reports as per HPI PMF Past Medical History Medical History Asthma delivery delivered Surgical History History of bilateral tubal ligation S/P appendectomy Social History Social History Alcohol intake: never Advance Directives: No Physical Exam ED Vital Signs: Vital Signs - 24 hr 06/24/23 10:37 Temperature 97.9 F Pulse Rate 79 Respiratory Rate 17 Blood Pressure 118/72 Pulse Oximetry 97 Oxygen Delivery Method Room Air BMI result Body Mass Index 22.3 Vital signs have been reviewed and appear to be correct. Blood pressure normal. Heart rate normal. Respiratory rate normal. Temperature normal. Oxygen saturation normal. Const General: cooperative, healthy appearing and no acute distress Orientation/consciousness: oriented to person, oriented to place, oriented to time and patient oriented x3 Limitations: no limitations HENMT Head: Yes normocephalic and Yes atraumatic Ears: external ears normal General nose exam: Normal external nose present Face and sinus: Yes face symmetric and Yes other (erythematous maculopapular rash to cheeks and nose) Mouth: Normal oral and palatal mucosa present, tongue normal, oropharynx normal, moist mucous membranes, no audible dysphonia and no drooling Throat: Yes uvula midline Eyes Pupils: Equal, round and reactive pupils present Neck Neck: Yes normal visual inspection and Yes supple Resp Effort & Inspection: normal respiratory effort and able to speak in complete sentences Auscultation: clear to auscultation bilaterally Cardio Rate: regular rate Rhythm: regular rhythm Heart sounds: S1 normal heart sound present and S2 normal heart sound present GI Palpation (GI): Soft to palpation and nontender Auscultation: normoactive bowel sounds General: Yes no CVA tenderness Back/Spine/Pelvis Back: no CVA tenderness Skin Other: erythematous maculopapular rash to cheeks and nose General skin exam: elasticity normal and turgor normal Neuro General: oriented to person, oriented to place, oriented to time, patient oriented x3, moves all extremities, no focal motor deficits and CN's II-XI intact bilaterally Cranial nerves: Yes Equal, round and reactive pupils present Cognition (Neuro): normal cognition Extrem General: Yes full ROM, Yes no pedal edema and Yes no calf tenderness Psych Mental Status: mental status grossly normal Affect: normal affect Thought process: Normal thought process present Medical Decision Making Medical Decision Making MDM Narrative: Patient is a 32-year-old Indonesian-speaking female presenting to the emergency department with complaint of burning and erythema to face which developed last night. On exam patient is awake, A+Ox3, VS WNL, afebrile, normal neurological exam without focal deficits, physical exam findings as above. Given reported symptoms and physical exam findings, initial differential includes contact dermatitis, rosacea, viral infection. Possible SLE, will advise patient to follow up with PCP for further evaluation. Do not suspect erysipelas, tinea, DRESS, TTP/DIC, meningococemia, necrotizing fasciitis, RMSF, SSSS, TEN/SJS, TSS, anaphylaxis. Will treat patient with betamethasone cream and refer to dermatology. REturn precautions discussed at bedside. Patient verbalized understanding of and agreement with plan. Differential Diagnosis Differential Diagnoses: The differential diagnosis associated with the presentation includes As per [facility] External Record Review External record reviewed: Inpatient record, Office record and Outpatient record Prescription Management I considered prescription management with: Other Discharge Plan Discharge Clinical Impression: Facial rash Patient Disposition: Home, Self-Care Instructions: Acute Rash (ED) Additional Instructions: Hoy lo evaluaron en el departamento de emergencias por un sarpullido en la madhavi. Le recetan grey crema con esteroides que puede usar dos veces al d?a. No use cremas con esteroides de venta suzi en cooper madhavi. Tambi?n puede seguir tomando loratidina. Monica un seguimiento con cooper proveedor de atenci?n primaria para grey evaluaci?n m?s detallada de angelo s?ntomas. Le derivar?n a dermatolog?a si angelo s?ntomas no desaparecen. Regrese al departamento de emergencias si presenta hinchaz?n en los labios o la lengua, hinchaz?n en la garganta o dificultad para tragar, dificultad para respirar, dolor en el pecho o dificultad para respirar, erupci?n que aumenta de beatriz?o, fiebre, dolor abdominal, v?mitos persistentes o cualquier otra preocupaci?n. s?ntomas. Prescriptions: New betamethasone dipropionate 0.05 % cream 1 appl topical BID PRN (Reason: rash) Qty: 15 0RF Rx Instructions: Apply to face, avoiding eye areas No Action metronidazole [Metrogel Vaginal] 0.75 % gel 1 appful vaginal BEDTIME 5 Days Qty: 70 0RF Rx Instructions: avoid alcohol permethrin 5 % cream 1 appl topical Q14D Qty: 60 0RF Rx Instructions: apply second treatment 14 days after first treatment if live lice remain hydroxyzine HCl 25 mg tablet 25 mg PO QID PRN (Reason: itching) Qty: 20 0RF dicyclomine 20 mg tablet 20 mg PO QID PRN (Reason: abdominal pain) Qty: 20 0RF Stand Alone Forms: Work/School Release Print Language: Indonesian
== END 2023-06-24 11:30 | disposition home or self-care (01) ==
PROVIDERS: Emergency Provider Emergency Medicine
DX: R21 Rash and other nonspecific skin eruption (principal); Z79.899 Other long term (current) drug therapy
CPT/HCPCS: 99282; 99283

== ENCOUNTER 2023-07-05 14:28 | Emergency (ER) | payer MEDICAID, SELFPAY ==
--- NOTE | ~2023-07-05 | XR_ITS ---
EXAMINATION: XR ABDOMEN KUB CLINICAL INDICATION: Lower abdominal pain. Nausea. Left lower quadrant tender to touch. COMPARISON: No direct comparison available. TECHNIQUE: AP view of the abdomen. FINDINGS: The bowel gas pattern is nonobstructive. There is abundant stool throughout the right hemicolon. There are cholecystectomy clips. XR/XR KUB IMPRESSION: Nonobstructive bowel gas pattern. Large stool burden.
--- NOTE | ~2023-07-05 | US_ITS ---
EXAMINATION: US PELVIS CLINICAL INFORMATION: Abdominal pain, nausea and left lower quadrant pain tender to palpate. COMPARISON: None available. TECHNIQUE: Ultrasound of the pelvis is performed using both transabdominal and transvaginal transducers along with Doppler. Transvaginal imaging is performed due to inadequate visualization transabdominally. FINDINGS: Uterus: The uterus is anteverted, retroflexed and measures 8.2 x 4.6 x 5.1 cm. The double wall endometrial thickness with endometrial fluid within measuring 0.5 cm. The uterus is smooth in contour and has normal myometrial echogenicity. No visible fibroid. Small follicular cysts seen in the cervix. There is free fluid in the endocervical canal. Adnexa: Both ovaries are visualized. There is normal color flow to the adnexa. There is no ovarian torsion. There is no pelvic ascites or fluid collection Right ovary measures 3.2 x 2.4 x 2.1 cm. 8.4 mL. There are small follicular cysts seen. Left ovary measures 2.8 x 1.6 x 1.8 CM and volume 4.2 mL There is a small echogenic area adjacent to the left adnexa likely question peristaltic bowel US/US pelvic and transvaginal IMPRESSION: 1. Small nabothian cysts in the cervix. The uterus is otherwise unremarkable. 2. There is fluid in the endometrial canal and endocervical canal. 3. The ovaries are unremarkable except for small follicular cysts. 4. There is a small echogenic area adjacent to the left adnexa likely peristaltic bowel. 5. There is no free fluid in the cul-de-sac. l
[2023-07-05 15:13] VITALS: BP 137/75; PULSE 68; RESP 16; TEMP 36.6; O2SAT 99; BMI 24.5
--- NOTE | 2023-07-05 15:14 | ED.GENADULT ---
HPI - General Adult General Chief complaint: Abdominal Pain Stated complaint: lower abd pain Time Seen by Provider: 07/05/23 17:29 Source: patient Mode of arrival: ambulatory Limitations: no limitations History of Present Illness HPI narrative: Patient is a 32-year-old female with history of appendectomy and tubal ligation presenting to the emergency department with complaint of bilateral lower abdominal pain as well as nausea and vomiting for the past week. Patient reports that when she wakes up she has been vomiting once each morning. Denies any diarrhea or constipation. Denies fevers. States emesis is nonbloody, nonbilious. Denies any abnormal vaginal discharge or concern for STIs. States that on Wednesday she thought she got her period but she only had bleeding that 1 day and none since. complaint: abdominal pain Onset (ago): week(s) Location: abdomen Radiation: non-radiation Severity: moderate Quality: aching Pain Consistency: constant Associated symptoms: nausea/vomiting Treatments prior to arrival: none Related Data Previous Rx's Medication Instructions Recorded metronidazole 0.75 % (37.5 mg/5 1 appful vaginal BEDTIME 5 days 05/22/20 gram) vaginal gel (Metrogel #70 grams Vaginal) hydroxyzine HCl 25 mg tablet 25 mg PO QID PRN itching #20 tabs 10/02/20 permethrin 5 % topical cream 1 appl topical Q14D 2 doses #60 10/02/20 grams dicyclomine 20 mg tablet 20 mg PO QID PRN abdominal pain 04/28/22 #20 tabs betamethasone dipropionate 0.05 % 1 appl topical BID PRN rash #15 06/24/23 topical cream grams polyethylene glycol 3350 17 17 g PO DAILY #119 grams 07/05/23 gram/dose oral powder (Miralax) Allergies Allergy/AdvReac Type Severity Reaction Status Date / Time amoxicillin [Amoxicillin] Allergy Severe SOB, Verified 11/20/20 12:12 rash/shortness of breath Review of Systems Review of Systems: As per HPI. Yes all other systems are reviewed and are negative Constitutional: Constitutional: Reports as per HPI [facility] Past Medical History Medical History Asthma delivery delivered Surgical History History of bilateral tubal ligation S/P appendectomy Social History Social History Alcohol intake: never Advance Directives: No Advance Directives Information Provided: Yes Physical Exam ED Vital Signs: Vital Signs - 24 hr 07/05/23 15:13 07/05/23 19:51 Temperature 97.8 F 98 F Pulse Rate 68 69 Respiratory Rate 16 16 Blood Pressure 137/75 122/75 Pulse Oximetry 99 99 Oxygen Delivery Method Room Air Room Air BMI result Body Mass Index 24.5 Vital signs have been reviewed and appear to be correct. Blood pressure normal. Heart rate normal. Respiratory rate normal. Temperature normal. Oxygen saturation normal. Const General: cooperative, healthy appearing and no acute distress Orientation/consciousness: oriented to person, oriented to place, oriented to time and patient oriented x3 Limitations: no limitations HENMT Head: Yes normocephalic and Yes atraumatic Ears: external ears normal General nose exam: Normal external nose present Face and sinus: Yes face symmetric Mouth: oropharynx normal and moist mucous membranes Throat: Yes uvula midline Eyes Pupils: Equal, round and reactive pupils present Neck Neck: Yes normal visual inspection and Yes supple Resp Effort & Inspection: normal respiratory effort and able to speak in complete sentences Auscultation: clear to auscultation bilaterally Cardio Rate: regular rate Rhythm: regular rhythm Heart sounds: S1 normal heart sound present and S2 normal heart sound present GI Palpation (GI): Soft to palpation, Tenderness to palpation present (GI) in the LLQ, no guarding and No Rebound tenderness present Auscultation: normoactive bowel sounds General: Yes no CVA tenderness Back/Spine/Pelvis Back: no CVA tenderness Skin General skin exam: elasticity normal and turgor normal Neuro General: oriented to person, oriented to place, oriented to time, patient oriented x3, moves all extremities, no focal motor deficits and CN's II-XI intact bilaterally Cranial nerves: Yes Equal, round and reactive pupils present Cognition (Neuro): normal cognition Extrem General: Yes full ROM, Yes no pedal edema and Yes no calf tenderness Psych Mental Status: mental status grossly normal Affect: normal affect Thought process: Normal thought process present Course Course Course Narrative: RME performed by Lore Mathis PA-C. Patient is a 32 year old assigned female at presenting to the emergency department with abdominal pain, nausea, and vomiting. Detailed physical exam and review of systems are deferred to the home mission worker. Labs and swabs ordered. Patient placed back in the waiting room pending room availability and results. Reevaluation(s) Reevaluation #1: I assumed care of patient. On evaluation she has mild tenderness upon palpation diffusely across her lower abdomen. Has history of appendectomy. No history of IBD, at this age I have low suspicion for her to have diverticulitis. She has been having normal bowel movements. She denies any pelvic pain or abnormal vaginal discharge. Denies concern for sexually transmitted infections. Reports a history of tubal ligation and has no suspicion for . Her menstrual cycle has been irregular at baseline reports that she had small amount of menstrual bleeding 2 days ago which has since subsided. Nursing staff had a difficult time obtaining IV access with a CT scan ordered by prior provider. Upon speaking with patient again clinically suspect that this is likely pelvic etiology versus constipation. Plan to obtain ultrasound and KUB. US/US pelvic and transvaginal IMPRESSION: 1. Small nabothian cysts in the cervix. The uterus is otherwise unremarkable. 2. There is fluid in the endometrial canal and endocervical canal. 3. The ovaries are unremarkable except for small follicular cysts. 4. There is a small echogenic area adjacent to the left adnexa likely peristaltic bowel. 5. There is no free fluid in the cul-de-sac. Suspect fluid in endometrial canal and endocervical canal likely menstrual bleeding with history of irregular menses, lower suspicion for endometritis. KUB reveals large stool burden, patient does state it has been a few days since she had a bowel movement and states that her bowel movements lately have been small and formed. Discussed daily MiraLax and outpatient follow-up with her primary care provider. Discussed strict return precautions. All questions answered. Stable for discharge. XR/XR KUB IMPRESSION: Nonobstructive bowel gas pattern. Large stool burden. Medical Decision Making Medical Decision Making [facility] Narrative: Patient is a 32-year-old female with history of appendectomy and tubal ligation presenting to the emergency department with complaint of bilateral lower abdominal pain as well as nausea and vomiting for the past week. On exam patient is awake, A+Ox3, VS WNL, afebrile, normal neurological exam without focal deficits, physical exam findings as above. Given reported symptoms and physical exam findings, initial differential includes uterine fibroid, ovarian cyst, diverticulitis, . Labs notable for no leukocytosis, no anemia, chronically elevated BUN. Patient signed out to Radha Garcia NP pending CT results. Differential Diagnosis Differential Diagnoses: The differential diagnosis associated with the presentation includes As per [facility]. Admission/Observation Consideration of admission/observation: Escalation of care including admission/observation considered Patient would have been admitted to the hospital had their work up had any findings where hospital admission was appropriate and their clinical presentation warranted hospital admission. Lab Data [facility] Lab Attestation statement: I reviewed the patient's lab results. As per [facility]. 07/05/23 16:22 07/05/23 16:15 Labs: Lab Results 07/05/23 07/05/23 07/05/23 Range/Units 16:15 16:22 16:24 WBC 6.6 (4.8-10.8) X10*3/uL RBC 4.64 (4.20-5.50) X10*6/uL Hgb 13.7 (12.0-16.0) g/dl Hct 39.7 (37.0-47.0) % MCV 85.6 (80.0-98.0) fL MCH 29.5 (27.0-33.0) pg MCHC 34.5 (31.0-35.0) g/dl RDW 12.0 (11.0-16.0) % Plt Count 227 (160-400) X10*3/uL MPV 10.1 (9.4-12.3) fL Immature Gran % (Auto) 0.2 (0.0-0.4) % Neut % (Auto) 59.2 (45-73) % Lymph % (Auto) 30.3 (20-40) % [place] % (Auto) 6.2 (2-11) % Eos % (Auto) 3.3 (0-4) % Baso % (Auto) 0.8 (0-2) % Lymph # (Auto) 2.0 (1.2-4.9) X10*3/uL [place] # (Auto) 0.4 (0.1-1.2) X10*3/uL Eos # (Auto) 0.2 (0.0-0.4) X10*3/uL Baso # (Auto) 0.1 (0.0-0.2) X10*3/uL Abs Immat Gran (auto) 0.01 (0.00-0.03) X10*3/uL Absolute Neuts (auto) 3.9 (2.0-8.3) x10*3/uL Absolute Nucleated RBC 0.000 (0.0-0.012) X10*3/uL Nucleated RBC % (auto) 0.0 (0.0-0.2) /100WBC Sodium 138 (135-145) mmol/L Potassium 4.3 (3.3-5.1) mmol/L Chloride 107 (96-108) mmol/L Carbon Dioxide 22 (22-29) mmol/L Anion Gap 13 (12-20) BUN 23 H (9-16) mg/dL Creatinine 0.76 (0.5-1.4) mg/dL Estim Creat Clear Calc 80.4 Estimated GFR > 60 Random Glucose 87 (60-115) mg/dL Calcium 8.7 (8.4-10.2) mg/dL Magnesium 2.3 (1.6-2.6) mg/dL Total Bilirubin 0.4 (0.0-1.0) mg/dL AST 18 (5-31) U/L ALT 13 (0-31) U/L Alkaline Phosphatase 71 (39-117) U/L Total Protein 7.2 (6.5-8.0) g/dL Albumin 4.3 (3.5-5.0) g/dL Lipase 26 (8-78) U/L Beta HCG, Quant < 2 mIU/mL Urine Color Yellow Urine Appearance Turbid Urine pH 8.0 (5.0-9.0) Ur Specific [place] 1.025 (1.005-1.025) Urine Protein Negative (Neg-Trace) mg/dL Urine Glucose (UA) Negative (Negative) mg/dL Urine Ketones Trace (Negative) mg/dL Urine Blood Negative (Negative) Urine Nitrite Negative (Negative) Ur Leukocyte Esterase Negative (Negative) Influenza Type A (PCR) NEGATIVE (Negative) Influenza Type B (PCR) NEGATIVE (Negative) RSV RNA Qual (PCR) NEGATIVE (Negative) SARS-CoV-2 RNA (RT-PCR) NEGATIVE (Negative) External Record Review External record reviewed: Inpatient record, Office record and Outpatient record Discharge Plan Discharge Clinical Impression: Constipation Patient Disposition: Home, Self-Care Additional Instructions: Your imaging today shows that you are significantly constipated. Take MiraLax daily, stop taking if you develop diarrhea. Return back to emergency department any new or worsening symptoms or concerns such as nausea with persistent vomiting, inability to tolerate eating or drinking, severe worsening pain, inability to have bowel movement, fevers, chills. Follow-up closely with your primary care provider. Prescriptions: New polyethylene glycol 3350 [Miralax] 17 gram/dose powder 17 g PO DAILY Qty: 119 0RF No Action metronidazole [Metrogel Vaginal] 0.75 % gel 1 appful vaginal BEDTIME 5 Days Qty: 70 0RF Rx Instructions: avoid alcohol permethrin 5 % cream 1 appl topical Q14D Qty: 60 0RF Rx Instructions: apply second treatment 14 days after first treatment if live lice remain hydroxyzine HCl 25 mg tablet 25 mg PO QID PRN (Reason: itching) Qty: 20 0RF dicyclomine 20 mg tablet 20 mg PO QID PRN (Reason: abdominal pain) Qty: 20 0RF betamethasone dipropionate 0.05 % cream 1 appl topical BID PRN (Reason: rash) Qty: 15 0RF Rx Instructions: Apply to face, avoiding eye areas Referrals: [facility] [Primary Care Provider] -
[2023-07-05 16:32] LABS: MANUAL DIFF FLAG NO
[2023-07-05 16:41] LABS: Basophils Absolute Auto 0.1 X10*3/uL (0.0-0.2); Basophils Percent Auto 0.8 % (0-2); Eosinophils Absolute Auto 0.2 X10*3/uL (0.0-0.4); Eosinophils Percent Auto 3.3 % (0-4); Hematocrit 39.7 % (37.0-47.0); Hemoglobin 13.7 g/dl (12.0-16.0); Imm Gran Abs Auto 0.01 X10*3/uL (0.00-0.03); Imm Gran Pct Auto 0.2 % (0.0-0.4); Lymphocytes Percent Auto 30.3 % (20-40); Mean Corpuscular HGB Conc 34.5 g/dl (31.0-35.0); Mean Corpuscular Hemoglobin 29.5 pg (27.0-33.0); Mean Corpuscular Volume 85.6 fL (80.0-98.0); Mean Platelet Volume 10.1 fL (9.4-12.3); Monocytes Absolute Auto 0.4 X10*3/uL (0.1-1.2); Monocytes Percent Auto 6.2 % (2-11); Neutrophils Absolute Auto 3.9 x10*3/uL (2.0-8.3); Neutrophils Percent Auto 59.2 % (45-73); Platelet Count 227 X10*3/uL (160-400); Red Blood Count 4.64 X10*6/uL (4.20-5.50); White Blood Count 6.6 X10*3/uL (4.8-10.8)
[2023-07-05 16:42] LABS: Appearance Urine Turbid; Color Urine Yellow; Glucose Urine UA Negative (Negative); Leukocyte Esterase Urine Negative (Negative); Nitrite Urine Negative (Negative); Specific Gravity - Urine 1.025 (1.005-1.025); Urine Blood Negative (Negative); Urine Ketones Trace mg/dL (Negative); Urine Protein Negative (Neg-Trace)
[2023-07-05 16:43] LABS: Alanine Aminotransferase 13 U/L (0-31); Albumin Level 4.3 g/dL (3.5-5.0); Alkaline Phosphatase 71 U/L (39-117); Anion Gap 13 (12-20); Aspartate Amino Transferase 18 U/L (5-31); Bilirubin Total 0.4 mg/dL (0.0-1.0); Blood Urea Nitrogen 23 mg/dL (9-16); Calcium 8.7 mg/dL (8.4-10.2); Carbon Dioxide 22 mmol/L (22-29); Chloride 107 mmol/L (96-108); Creatinine Clr Calc Pharmacy 80.4; Estimated Glomerular Filt Rate > 60; Glucose Random 87 mg/dL (60-115); Magnesium 2.3 mg/dL (1.6-2.6); Potassium 4.3 mmol/L (3.3-5.1); Sodium 138 mmol/L (135-145); Total Protein 7.2 g/dL (6.5-8.0)
[2023-07-05 16:45] LABS: HCG Quantitative < 2 mIU/mL
[2023-07-05 17:27] LABS: Influenza A PCR NEGATIVE (Negative); Influenza B PCR NEGATIVE (Negative); Resp Syncy Virus RNA Qual PCR NEGATIVE (Negative); SARS COV2 PCR INHOUSE NEGATIVE (Negative)
[2023-07-05 19:51] VITALS: BP 122/75; PULSE 69; RESP 16; TEMP 36.6; O2SAT 99
--- NOTE | 2023-07-05 19:52 | PC.NURSE ---
pt awake and alert. skin, pwd, resp even and non labored. speaking in full, clear sentences. reports intermittent left lower abd pain x 1 week. n/v in the morning. reports having a tubal ligation 7 years ago. last period was 2 days ago but light and only lasted 1 day. denies issues w/ bowels. pt difficult IV stick. SENIOR SALES ASSISTANT currently attempting ultrasound IV for CT.
[2023-07-05 20:10] LABS: Lipase 26 U/L (8-78)
[2023-07-05] MEDS: polyethylene glycoL 3350 17 GM POWD.PACK PO (23:01)
[2023-07-05 23:05] VITALS: BP 129/82; PULSE 73; RESP 16; TEMP 36.6; O2SAT 99
== END 2023-07-05 23:05 | disposition home or self-care (01) ==
PROVIDERS: Nurse Practitioner Family; Physician Assistant Medical; Emergency Provider Emergency Medicine Emergency Medical Services
DX: K59.00 Constipation, unspecified (principal); J45.909 Unspecified asthma, uncomplicated; Z90.49 Acquired absence of other specified parts of digestive tract; Z98.51 Tubal ligation status; Z11.52 Encounter for screening for COVID-19; Z20.828 Contact with and (suspected) exposure to other viral communicable diseases
CPT/HCPCS: 0241U; 36415; 74018; 76830; 76856; 80053; 81003; 83690; 83735; 84702; 85025; 99284

== ENCOUNTER 2023-07-28 16:27 | Outpatient (REF) | payer MEDICAID, SELFPAY ==
[2023-07-28 17:52] LABS: MANUAL DIFF FLAG NO
[2023-07-28 18:07] LABS: Basophils Percent Auto 0.8 % (0-2); Eosinophils Absolute Auto 0.2 X10*3/uL (0.0-0.4); Eosinophils Percent Auto 3.4 % (0-4); Hematocrit 39.9 % (37.0-47.0); Hemoglobin 13.6 g/dl (12.0-16.0); Imm Gran Abs Auto 0.01 X10*3/uL (0.00-0.03); Imm Gran Pct Auto 0.2 % (0.0-0.4); Lymphocytes Absolute Auto 1.6 X10*3/uL (1.2-4.9); Lymphocytes Percent Auto 31.1 % (20-40); Mean Corpuscular HGB Conc 34.1 g/dl (31.0-35.0); Mean Corpuscular Volume 87.9 fL (80.0-98.0); Mean Platelet Volume 10.4 fL (9.4-12.3); Monocytes Absolute Auto 0.3 X10*3/uL (0.1-1.2); Monocytes Percent Auto 5.6 % (2-11); Neutrophils Absolute Auto 2.9 x10*3/uL (2.0-8.3); Neutrophils Percent Auto 58.9 % (45-73); Platelet Count 216 X10*3/uL (160-400); Red Blood Count 4.54 X10*6/uL (4.20-5.50); Red Cell Distribution Width 11.9 % (11.0-16.0)
[2023-07-28 18:14] LABS: Estimated Average Glucose 94 mg/dL; Hemoglobin A1c % 4.9 % (<6.0)
[2023-07-28 18:34] LABS: Alanine Aminotransferase 13 U/L (0-31); Albumin Level 4.2 g/dL (3.5-5.0); Alkaline Phosphatase 76 U/L (39-117); Anion Gap 8 (12-20); Aspartate Amino Transferase 14 U/L (5-31); Bilirubin Direct 0.1 mg/dL (0.0-0.5); Bilirubin Total 0.3 mg/dL (0.0-1.0); Blood Urea Nitrogen 21 mg/dL (9-16); Calcium 8.9 mg/dL (8.4-10.2); Carbon Dioxide 26 mmol/L (22-29); Chloride 106 mmol/L (96-108); Cholesterol 149 mg/dL (<200); Estimated Glomerular Filt Rate > 60; Glucose Random 93 mg/dL (60-115); HDL Cholesterol 48 mg/dL (>40); LDL Cholesterol Calculated 88 mg/dL (<100); Sodium 136 mmol/L (135-145); Total Protein 7.3 g/dL (6.5-8.0); Triglycerides 68 mg/dL (<150)
[2023-07-29 01:03] LABS: CT PCR NOT DETECTED (Not Detect.); NG PCR NOT DETECTED (Not Detect.)
[2023-07-29 08:39] LABS: HIV AB/AG Nonreactive (Nonreactive); HIV Num 1 0.05 S/CO (0.00-0.99); ~HepC Num1 0.15 S/CO (0.00-0.79); ~Hepatitis C Antibody Nonreactive (Nonreactive)
[2023-07-30 08:48] LABS: RPR Rapid Plasma Reagin NON-REACTIVE (NON-REACTIVE)
== END 2023-07-28 16:28 | disposition home or self-care (01) ==
LOC: HO.HHCL 16:27
PROVIDERS: Visit Provider Internal Medicine
DX: Z00.00 Encounter for general adult medical examination without abnormal findings (principal); Z11.4 Encounter for screening for human immunodeficiency virus [HIV]
CPT/HCPCS: 0353U; 36415; 80048; 80061; 80076; 83036; 85025; 86592; 86803; 87389

== ENCOUNTER 2024-09-12 11:43 | Outpatient (REF) | payer MEDICAID, SELFPAY ==
--- OUTSIDE RECORDS SUMMARY | 2024-09-12 13:16 | XMS_ITS | Encounter Summary ---
Author Organization [employer] Address [address] [place] [address] Care Team Providers Care Garage Door Installer Name Role Phone Karena Feliciano MD Primary Care Provider [phone] Encounter Details Date Type Department Care Team (Latest Contact Info) Description 09/12/2024 Travel Social History Tobacco Use Types Packs/Day Years Used Date Smoking Tobacco: Never Passive Smoke Exposure: Never Smokeless Tobacco: Never Depression Answer Date Recorded Patient Health Questionnaire-9 Score 10 10/29/2023 Patient Health Questionnaire-9 Score 10 10/29/2023 Last PHQ-9: Questionnaire Data Not on file 0 10/29/2023 Housing Stability Answer Date Recorded What is your housing situation today? I have chan cox 10/22/[address] you li ve. Do you have problems with any of the following? None of the above 10/22/2023 Food Insecurity Answer Date Recorded Within the past 12 months, y ou worried that your food would run out before you got money to buy more: Never True 10/22/2023 Within the past 12 months,th e food you bought just didn't last and you didn't have enough money to get more: Never True 03/2024 Transportation Answer Date Recorded In the past 12 months, has l ack of transportation kept you from medical appts, meetings, work or from getting things needed for daily living? No 10/22/2023 Utilities Answer Date Recorded In the past 12 months, has t he electric, gas, oil or water company threatened to shut off services in your home? Yes 10/29/2023 Depression Answer Date Recorded Patient Health Questionnaire-2 Score 2 10/29/2023 Internet Access Answer Date Recorded Internet Access Q1 I am not sure 12/13/2023 Internet Access Q2 Not on file 12/13/2023 Comments Unknown Sex and Gender Information Value Date Recorded Sex Assigned at Female 02/09/2022 10:18 AM EDT Legal Sex Female 10:18 AM EDT Gender Identity Female 10/29/2023 10:23 AM EDT Sexual Orientation Straight 02/09/2022 10 :18 AM EDT documented as of this encounter Plan of Treatment Not on file documented as of this encounter Visit Diagnoses Not on filedocumented in this encounter Additional Health Concerns Assessment Noted Time PHQ-9 Depression Total Score: 10 024 1:41 PM EDT documented as of this encounter Care Teams Garage Door Installer Relationship Specialty Start Date End Date Karena Feliciano MD [address] [place] [address] PCP - General Family Medicine 12/24/22 documented as of this encounter
[2024-09-15 08:19] LABS: TS Negative Control Passed; TS Panel A 0; TS Panel B 0; TS Positive Control Passed; TSpotTB Negative (Negative)
== END 2024-09-12 11:44 | disposition home or self-care (01) ==
LOC: HO.HHCL 11:43
PROVIDERS: Visit Provider General Practice
DX: Z11.1 Encounter for screening for respiratory tuberculosis (principal)
CPT/HCPCS: 36415; 86481

== ENCOUNTER → 2024-11-14 20:23 | Outpatient (BNV) | payer MEDICAID, SELFPAY | PROVIDERS: Visit Provider Radiology Diagnostic Radiology | DX: R06.02 Shortness of breath (principal) | CPT/HCPCS: 71046 ==

== ENCOUNTER 2024-11-14 20:52 | Emergency (ER) | payer MEDICAID, SELFPAY ==
--- NOTE | ~2024-11-14 | XR_ITS ---
CLINICAL HISTORY: SOB 2 view chest x-ray Comparison: None provided Findings: Lungs are clear without acute infiltrates. No pneumothorax. Heart size normal. No acute bony abnormalities. Impression: No acute processes This document has been electronically signed by: Isreal Villanueva MD on 11/14/2024 21:43:52
[2024-11-14 20:59] VITALS: BP 120/60; PULSE 82; RESP 20; TEMP 36.7; O2SAT 100; BMI 26.6
[2024-11-14 21:24] LABS: Hematocrit 39.7 % (37.0-47.0); Hemoglobin 14.1 g/dl (12.0-16.0); Mean Corpuscular HGB Conc 35.5 g/dl (31.0-35.0); Mean Corpuscular Hemoglobin 29.7 pg (27.0-33.0); Mean Corpuscular Volume 83.6 fL (80.0-98.0); NRBC Abs Auto 0.000 X10*3/uL (0.0-0.012); NRBC Pct Auto 0.0 /100WBC (0.0-0.2); Platelet Count 225 X10*3/uL (160-400); Red Blood Count 4.75 X10*6/uL (4.20-5.50); White Blood Count 6.0 X10*3/uL (4.8-10.8)
[2024-11-14 21:39] LABS: Alanine Aminotransferase 20 U/L (0-31); Albumin Level 4.6 g/dL (3.5-5.0); Alkaline Phosphatase 75 U/L (39-117); Anion Gap 11 (12-20); Aspartate Amino Transferase 22 U/L (5-31); Blood Urea Nitrogen 16 mg/dL (9-16); Calcium 9.0 mg/dL (8.4-10.2); Carbon Dioxide 28 mmol/L (22-29); Chloride 106 mmol/L (96-108); Creatinine Clr Calc Pharmacy 81.7; Estimated Glomerular Filt Rate > 60; Magnesium 2.2 mg/dL (1.6-2.6); Potassium 3.7 mmol/L (3.3-5.1); Sodium 141 mmol/L (135-145); Total Protein 7.7 g/dL (6.5-8.0)
[2024-11-14 21:40] LABS: IDNOW Serial# 6674DD1D; Strep A Nucleic Acid Negative (Negative)
[2024-11-14 22:00] LABS: Resp Syncy Virus RNA Qual PCR NEGATIVE (Negative); SARS COV2 PCR INHOUSE NEGATIVE (Negative)
[2024-11-15 00:31] VITALS: BP 120/75; PULSE 73; RESP 16; TEMP 36.5; O2SAT 98
--- NOTE | 2024-11-15 00:48 | ED_ITS ---
HPI - SOB/Dyspnea General Chief Complaint: Dyspnea Stated Complaint: Asthma Time Seen by Provider: 11/15/24 00:28 Source: patient Mode of arrival: ambulatory Limitations: no limitations History of Present Illness ED Provider: Harvey HU HPI Narrative: The patient is a 34 female presenting to the ED reporting 2 weeks ago she was sick with shortness of breath, body aches, cough intermittently productive of green sputum, and a fever, patient reports she increased usage of her inhaler and treated symptoms with OTC analgesics, patient reports symptoms lasted approximately 2 days and then began to improve. The patient reports she never felt fully back to baseline and 2 days ago began experiencing worsening shortness of breath with increased cough again productive of green sputum as well as a headache and sore throat. Patient reports she has been taking Tylenol with good effect for the headache and sore throat however cough and shortness of breath has been persisting. Patient reports using her inhaler every 4 hours without significant relief. The patient denies recurrence of fever, denies associated chest pain, pleurisy, abdominal pain, vomiting, diarrhea, or urinary symptoms. The patient denies any known recent sick contacts, denies any recent trauma. The patient is a nonsmoker. Pertinent past history: asthma Related Data Previous Rx's ?Medication ?Instructions ?Recorded metronidazole 0.75 % (37.5 mg/5 1 appful vaginal BEDTI ME 5 days 05/22/20 gram) vaginal gel (Metrogel #70 grams Vaginal) hydroxyzine HCl 25 mg tablet 25 mg PO QID PRN itching #20 tabs 10/02/20 permethrin 5 % topical cream 1 appl topical Q14D 2 dos es #60 10/02/20 grams dicyclomine 20 mg tablet 20 mg PO QID PRN abdominal pain 04/28/22 #20 tabs betamethasone dipropionate 0.05 % 1 appl topical BID P RN rash #15 06/24/23 topical cream grams polyethylene glycol 3350 17 17 g PO DAILY #119 grams 0 07/05/23 gram/dose oral powder (Miralax) prednisone 20 mg tablet 60 mg (3 x 20 mg) PO DAILY 5 days 11/15/24 #15 tabs Allergies Allergy/AdvReac Type Severity Reaction Status Date / Time amoxicillin (Amoxicillin) Allergy Severe SOB, Verified 11/14/24 21:05 rash/shortness of breath Review of Systems 2 Review of Systems: Yes all other systems are reviewed and are negative PMFSH Past Medical History Medical History Asthma delivery delivered Surgical History History of bilateral tubal ligation S/P appendectomy Social History Social History Alcohol intake: never Smoked in Last 30 Days: No Use of substances other than those prescribed or required for medical reasons: No Advance Directives: No Advance Directives Information Provided: No Physical Exam 2 Exam: Exam: CONSTITUTIONAL: The patient appears non-toxic, well nourished and in no acute distress. Vital signs as documented. HEAD: Atraumatic, normocephalic. EYES: EOMs grossly intact, pupils equal, conjunctiva clear, no exudate. ENT: Nares patent, no discharge. Airway patent, no audible stridor, visible mucosa is pink and moist without noted lesions. NECK: Trachea is midline, no obvious masses or gross abnormalities. CHEST: Symmetric movement, normal appearance. LUNGS: LS present, there are bilateral rhonchi noted in the upper lung gibson which clear with cough, otherwise clear to auscultation bilaterally, no wheezing. Non-labored work of breathing. CARDIAC: Regular Rhythm, S1/S2 appreciated, no murmurs, rubs or gallops. ABDOMEN: Abdomen soft and non-tender x4 quadrants, no palpable masses or organomegaly. : Deferred. EXTREMITIES: Normal tone, moves all extremities spontaneously without reported pain. No obvious acute injury or deformity noted. NEURO: Alert and oriented x3, CN II-XII appear grossly intact. Cerebellar Functioning grossly intact. No obvious sensory or motor deficits. Speech clear and appropriate. PSYCH: normal affect, appropriate eye contact, fluid speech, with appropriate response to questioning. No reported suicidality or homicidality. SKIN: Warm, dry, color appropriate, normal turgor. No rashes noted. Vital Signs: Vital Signs: Last Vital Signs Temp 97.7 F 11/15/24 00:31 Pulse 73 11/15/24 00:31 Resp 16 11/15/24 00:31 BP 120/75 11/15/24 00:31 Pulse Ox 98 11/15/24 00:31 O2 Del Method Room Air 11/15/24 00:31 BMI result Body Mass Index 26.6 Medications Administered Discontinued Medications Generic Name Dose Route Start Last Admin Trade Name Abdullahi PRN Reason Stop Dose Admin Prednisone 60 mg 11/15/24 00:58 11/15/24 01:08 Prednisone 20 Mg Tablet PO 11/15/24 00:59 60 mg ONCE ONE Administration Medical Decision Making Medical Decision Making [facility] Narrative: 1:12 AM 11/15/2024 (Joan HU): The patient is a 34-year-old female presenting to the ED for evaluation of ongoing cough and shortness of breath since a viral URI type illness 2 weeks ago. The patient in the ED is well-appearing, vital signs are stable, exam is benign with the exception of upper lung field rhonchi which clear with cough. Patient's laboratory evaluation, viral swab, strep swab, and chest x-ray are all unremarkable, chest x-ray shows no focal consolidation. The patient's presentation is consistent with likely post viral bronchitis, we will treat with 5 day prednisone burst and outpatient PCP follow up. Admission/Observation Consideration of admission/observation: Escalation of care including admission/observation considered Lab Data [facility] Lab Attestation statement: I reviewed the patient's lab results. 11/14/24 21:16 11/14/24 21:16 Labs: Lab Results 11/14/24 Range/Units 21:16 WBC 6.0 (4.8-10.8) X10*3/uL RBC 4.75 (4.20-5.50) X10*6/uL Hgb 14.1 (12.0-16.0) g/dl Hct 39.7 (37.0-47.0) % MCV 83.6 (80.0-98.0) fL MCH 29.7 (27.0-33.0) pg MCHC 35.5 H (31.0-35.0) g/dl RDW 12.0 (11.0-16.0) % Plt Count 225 (160-400) X10*3/uL MPV 9.5 (9.4-12.3) fL Absolute Nucleated RBC 0.000 (0.0-0.012) X10*3/uL Nucleated RBC % (auto) 0.0 (0.0-0.2) /100WBC Sodium 141 (135-145) mmol/L Potassium 3.7 (3.3-5.1) mmol/L Chloride 106 (96-108) mmol/L Carbon Dioxide 28 (22-29) mmol/L Anion Gap 11 L (12-20) BUN 16 (9-16) mg/dL Creatinine 0.73 (0.5-1.4) mg/dL Estim Creat Clear Calc 81.7 Estimated GFR > 60 Random Glucose 98 (60-115) mg/dL Calcium 9.0 (8.4-10.2) mg/dL Magnesium 2.2 (1.6-2.6) mg/dL Total Bilirubin 0.6 (0.0-1.0) mg/dL AST 22 (5-31) U/L ALT 20 (0-31) U/L Alkaline Phosphatase 75 (39-117) U/L Total Protein 7.7 (6.5-8.0) g/dL Albumin 4.6 (3.5-5.0) g/dL Influenza Type A (PCR) NEGATIVE (Negative) Influenza Type B (PCR) NEGATIVE (Negative) RSV RNA Qual (PCR) NEGATIVE (Negative) SARS-CoV-2 RNA (RT-PCR) NEGATIVE (Negative) S. pyogenes GrpA BEN Negative (Negative) Radiology Impression Discussion of test interpretation with radiology: I have reviewed the radiologist's reading. Radiologist Impression: CLINICAL HISTORY: SOB 2 view chest x-ray Comparison: None provided Findings: Lungs are clear without acute infiltrates. No pneumothorax. Heart size normal. No acute bony abnormalities. Impression: No acute processes This document has been electronically signed by: Isreal Villanueva MD on 11/14/2024 21:43:52 Discharge Plan Discharge Clinical Impression: Acute bronchitis Qualifiers: Bronchitis organism: unspecified organism Qualified Code(s): J20.9 - Acute bronchitis, unspecified Patient Disposition: Home, Self-Care Instructions: Acute Bronchitis (ED) Additional Instructions: Thank you for choosing [facility]'s Emergency Department for your care today. Thankfully your laboratory evaluation, chest x-ray, and exam today are reassuring. There was no evidence of pneumonia or other acute emergent process responsible for your symptoms. At this time there is no indication for admission to the hospital or continued ED observation, and it is safe to discharge you home. Your symptoms are likely related to a post viral bronchitis, we are treating you with a 5 day course of prednisone, please take this as prescribed. Please continue using your rescue inhaler as needed. Please stay well hydrated and get plenty of rest. You may take alternating (staggered) doses of ibuprofen 600mg and Tylenol 1000mg every 4 hours as needed for any additional cough or discomfort. Please follow up with your primary care physician by calling Wednesday for re- evaluation Wednesday, for additional management of your symptoms, and continued preventative care. If you do not have a primary care physician, please call the [facility] at [phone] to establish a new primary care physician. While waiting to establish your new primary care physician, you can call our [facility] at [phone] for non-emergency needs. Please return to the emergency department if you develop a severe or sudden change in your symptoms, a fever over 100.4 that does not improve with Tylenol or Ibuprofen, recurrent vomiting, or any other new or worsening symptoms or concerns. Prescriptions: New prednisone 20 mg tablet 60 mg PO DAILY 5 Days Qty: 15 0RF No Action metronidazole [Metrogel Vaginal] 0.75 % gel 1 appful vaginal BEDTIME 5 Days Qty: 70 0RF Rx Instructions: avoid alcohol permethrin 5 % cream 1 appl topical Q14D Qty: 60 0RF Rx Instructions: apply second treatment 14 days after first treatment if live lice remain hydroxyzine HCl 25 mg tablet 25 mg PO QID PRN (Reason: itching) Qty: 20 0RF dicyclomine 20 mg tablet 20 mg PO QID PRN (Reason: abdominal pain) Qty: 20 0RF betamethasone dipropionate 0.05 % cream 1 appl topical BID PRN (Reason: rash) Qty: 15 0RF Rx Instructions: Apply to face, avoiding eye areas polyethylene glycol 3350 [Miralax] 17 gram/dose powder 17 g PO DAILY Qty: 119 0RF Referrals: [facility] [Primary Care Provider, Medical] Clinical Impression: Acute bronchitis Print Language: Italian
[2024-11-15 01:40] VITALS: BP 120/75; PULSE 73; RESP 16; TEMP 36.5; O2SAT 98
== END 2024-11-15 01:41 | disposition home or self-care (01) ==
PROVIDERS: Emergency Provider Emergency Medicine
DX: J40 Bronchitis, not specified as acute or chronic (principal); R06.02 Shortness of breath; R05.9 Cough, unspecified; R50.9 Fever, unspecified; R51.9 Headache, unspecified
CPT/HCPCS: 71046; 80053; 83735; 85027; 87637; 87651; 99283; 99284